=== PATIENT | male | born 1965 | race Hispanic/Latino ===

== ENCOUNTER 2018-05-13 15:00 | Outpatient (CLI) | payer OTHER | END 2018-05-13 15:01 | disposition home or self-care (01) | LOC: BICRAD 15:00 | PROVIDERS: ATTEND Internal Medicine | DX: Z02.71 Encounter for disability determination (principal); M17.11 Unilateral primary osteoarthritis, right knee | CPT/HCPCS: 72100 ==

== ENCOUNTER 2018-08-15 15:34 | Emergency (ER) | payer SELFPAY ==
[2018-08-15] MEDS ORDERED: Ondansetron ODT 4 MG TAB ONE (16:21)
[2018-08-15] MEDS ORDERED: Ketorolac Tromethamine 30 MG/ML VIAL ONE (16:21)
--- NOTE | 2018-08-15 19:23 | RAD ---
TWO VIEWS CHEST: 08/15/18 PROVIDED CLINICAL HISTORY: Chest pain and cough. FINDINGS: Comparison is made with the study dated 04/21/12. The cardiac and mediastinal silhouette is unchanged in appearance. No focal consolidation, pleural fl uid or pneumothorax apparent. Left basilar opacity is stable likely related to prominent epicardial f at pad. IMPRESSION: No evidence for an acute cardiopulmonary process. POS: H
== END 2018-08-15 17:54 | disposition home or self-care (01) ==
LOC: ERS 15:34
DX: R07.81 Pleurodynia (principal); E11.9 Type 2 diabetes mellitus without complications; F17.210 Nicotine dependence, cigarettes, uncomplicated
CPT/HCPCS: 71046; 96372; J1885; Q0162

== ENCOUNTER 2024-04-18 15:32 | Outpatient (CLI) | payer MEDICARE | END 2024-04-18 15:33 | disposition home or self-care (01) | LOC: BICULT 15:32 | PROVIDERS: ATTEND Family Medicine | DX: R22.1 Localized swelling, mass and lump, neck (principal); E04.1 Nontoxic single thyroid nodule | CPT/HCPCS: 76999 ==

== ENCOUNTER 2024-07-08 09:06 | Emergency (ER) | payer MEDICARE ==
[2024-07-08] MEDS ORDERED: Ketorolac Tromethamine 30 MG (1 mL) VIAL ONE (09:58)
[2024-07-08 10:30] LABS: Bacteria/HPF None Seen HPF (None Seen); Bilirubin Negative (Negative); Blood, Urine Negative (Negative); CAUTI Indications for Culture Pelvic or flank pain; Clarity Clear (Clear); Glucose, Urine (Dipstick) Normal (Negative); Ketone, Urine Negative (Negative); Leukocyte Negative Leu/uL (Negative); Nitrite Negative (Negative); Protein, Urine (Dipstick) Negative (Neg-Trace); RBC/HPF 0-3 HPF (0-3); Specific Gravity, Urine 1.007 (1.002-1.036); Squamous Epithelial None Seen HPF (0-3); Urobilinogen Normal mg/dL (Less than 2); WBC/HPF 0-3 HPF (0-3); pH, Urine 5.5 (5.0-9.0)
[2024-07-08 10:33] LABS: Urine Culture Reflex No No
== END 2024-07-08 11:20 | disposition home or self-care (01) ==
LOC: ERS 09:06
DX: S39.012A Strain of muscle, fascia and tendon of lower back, initial encounter (principal); S39.011A Strain of muscle, fascia and tendon of abdomen, initial encounter; E11.9 Type 2 diabetes mellitus without complications; F17.210 Nicotine dependence, cigarettes, uncomplicated; X58.XXXA Exposure to other specified factors, initial encounter; Z79.84 Long term (current) use of oral hypoglycemic drugs
CPT/HCPCS: 71045; 74176; 81001; J1885; 96372

== ENCOUNTER 2025-04-28 14:02 | Outpatient (CLI) | payer MEDICARE | END 2025-04-28 14:03 | disposition home or self-care (01) | LOC: ULT 14:02 | PROVIDERS: ATTEND Family Medicine | DX: E04.1 Nontoxic single thyroid nodule (principal) | CPT/HCPCS: 76536 ==